=== PATIENT | male | born 1980 | race Two or more races ===

== ENCOUNTER 2017-11-02 23:25 | Emergency (ER) | payer OTHER ==
--- NOTE | 2017-11-03 01:00 | ED Physician Documentation ---
History of Present Illness - Stated complaint Stated Complaint: ALLERGIC REACTION/HEP B VAC - Chief complaint Chief Complaint: Wound - History obtained from History obtained from: Patient - History of Present Illness Timing: Yesterday Pain level now: 0 Improved by: no ameliorating factors Worsened by: no exacerbating factors - Additonal information Additional information: received second dose of hep b vaccination and subsequently developed generalized pruritic rash. no h/o similar reaction. denies dyspnea, oropharyngeal swelling/constriction, lightheadedness Review of Systems Constitutional: reports: Reviewed and negative Respiratory: reports: Reviewed and negative Skin: reports: Rash PD PAST MEDICAL HISTORY - Past Medical History Past Medical History: No - Past Surgical History Past Surgical History: Yes - Present Medications Home Medications: Ambulatory Orders Medication Instructions Recorded Confirmed predniSONE [Prednisone] 40 mg PO DAILY 3 Days #6 tablet 11/03/17 - Allergies Allergies/Adverse Reactions: Allergies Allergy/AdvReac Type Severity Reaction Status Date / Time No Known Drug Allergies Allergy Verified 11/02/17 23:37 - Social History Does the pt smoke?: No Smoking Status: Never smoker Does the pt drink ETOH?: No Does the pt have substance abuse?: No - Immunizations Immunizations are current?: Yes - POLST Patient has POLST: No PD ED PE NORMAL - Vitals Vital signs reviewed: Yes - General General: Alert and oriented X 3, No acute distress, Well developed/nourished - HEENT HEENT: Pharynx benign - Respiratory Respiratory: No respiratory distress, Clear bilaterally PD ED PE EXPANDED - Derm Derm: Urticaria (generalized, scattered without confluence) Results - Vitals Vitals: Oxygen O2 Source Room air PD MEDICAL DECISION MAKING - ED course Complexity details: considered differential, d/w patient Departure - Departure Disposition: 01 Home, Self Care Clinical Impression: Allergic reaction Condition: Good Instructions: ED Drug React Allergic Follow-Up: ARACELI Estrella [Provider Group] Prescriptions: predniSONE [Prednisone] 40 mg PO DAILY 3 Days #6 tablet Discharge Date/Time: 11/03/17 01:29
[2017-11-03] MEDS ORDERED: predniSONE 20 MG TABLET PO STA (01:17)
[2017-11-03 01:29] VITALS: BP 119/71
== END 2017-11-03 01:29 | disposition home or self-care (01) ==
LOC: ED 23:25
DX: T88.1XXA Other complications following immunization, not elsewhere classified, initial encounter (principal); L27.1 Localized skin eruption due to drugs and medicaments taken internally; T50.Z95A Adverse effect of other vaccines and biological substances, initial encounter
CPT/HCPCS: 99283; J7512

== ENCOUNTER 2019-05-04 09:16 | Outpatient (CLI) | payer OTHER ==
--- NOTE | 2019-05-04 09:52 | SLEEP CARE CONSULTATION ---
Information from patient questionnaire entered by Lien Silva. I have reviewed and concur with the information entered by Lien Silva. This document represents the service I personally performed and the decisions made by me, Jose Angel Mcmahon MD, [facility]. History of Present Illness Reason for Visit: New patient Chief Complaint: reports: Unrefreshed sleep, Excessive daytime sleepiness, Observed pauses in breathing, Fatigue Usual bedtime: 8:00-11:00PM Time it takes to fall asleep: 5-15 MINUTES Snores at night: Yes Observed to quit breathing while asleep: Yes Sleeps alone due to snoring: No Number of times waking at night: 3-5 Reasons for waking at night: reports: Choking, Gasping for air, Bathroom Toss, Turn, or Twitch while sleeping: Yes Recalls having dreams: Yes Usually gets out of bed at: 6:00-7:00AM Feels refreshed in the morning: No Morning headache: No Sleepy or fatigued during the day: Yes Ever fallen asleep while driving: No Takes day naps: Yes Dreams during day naps: Yes Prior sleep studies: No Additional HPI information: I had the pleasure of seeing Mr. Hawkins today regarding the possibility of him having a sleep disorder. As you know, he is a 29 year old gentleman who complains of fatigue and excessive daytime sleepiness. He works rotating shift and sometimes have to wake up as early as 2 am to commute from [place] to the [facility]. He also snores and his girlfriend has seen his stop breathing at night. Subjective Initial Mora Sleepiness Scale score: 15 Social History The patient's occupation is a [employer]. Patient is and lives in [facility]. Have you smoked in the past 12 months: No Alcohol use: No Caffeine use: Yes Caffeine amount and frequency: 1/2-1 POT OF COFFEE/DAY Family History Family history of sleep disordered breathing: Yes Family Hx Sleep Apnea: Sibling: Snoring, Grandparent: Snoring Allergies and Home Medications Home medication list reviewed: Yes Review of Systems Weight gain over past 5 years: 40 Weight loss over past 5 years: 40 Ear/Nose/Throat: reports: wisdom teeth removed Musculoskeletal: reports: back pain Immunologic: reports: allergies to food or environment Physical Exam Vital signs obtained and entered by: Dr. Nikomborirak Blood Pressure: 100/60 Cuff size: regular Heart Rate: 85 O2 Saturation: 98 Height: 5 ft 5 in Weight (kg): 81.647 kg Body Mass Index: 29.9 BMI Classification: Overweight Neck circumference: 15 HEENT: No craniofacial malformation Nostrils: patent to airflow Turbinates: normal Septum: midline Mouth and throat: normal Soft palate: normal Hard palate: normal Uvula: normal Uvula visualization: 100% Mallampati Class I Tongue: normal in size Tonsils: small Chin and jaw: normal size and position Neck: normal w/o lymphadenopathy or thyromegaly Heart: regular rate and rhythm Lungs: clear bilaterally Abdomen: soft, non-tender Extremities: no edema or clubbing Neurologic: intact, no focal deficits Impression and Plan 1. Obstructive Sleep Apnea-Hypopnea Syndrome, as suggested by history of loud and irregular snoring, observed cessation of breath while asleep, frequent awakenings during the night, unrefreshed sleep, cognitive impairment, and daytime hypersomnolence. Obesity is a common predisposing factor for obstructive sleep apnea-hypopnea syndrome. Pathophysiology of sleep-disordered breathing was discussed. I recommend proceeding to polysomnography to confirm the diagnosis and to assess severity. I informed the patient of what the sleep st udies involve and after some discussion, he agreed to proceed. Plan: 1. Schedule polysomnography and return in 1 to 2 weeks after the study to discuss result and initiate therapy. 2. Avoid long distance driving or when feeling sleepy. 3. Avoid alcohol, sedative and muscle relaxant around bedtime. 4. Attempt to lose some weight. I spent 100% of this 15 minute visit face to face with the patient with greater than 50% of this was spent time counseling the patient and coordination of care.
[2019-05-04 09:53] VITALS: BP 100/60
== END 2019-05-04 09:17 | disposition home or self-care (01) ==
LOC: SC 09:16
PROVIDERS: ATTEND Internal Medicine Pulmonary Disease
DX: R06.83 Snoring (principal); G47.8 Other sleep disorders; R06.81 Apnea, not elsewhere classified; R41.89 Other symptoms and signs involving cognitive functions and awareness; G47.10 Hypersomnia, unspecified
CPT/HCPCS: 99203; 99212

== ENCOUNTER 2019-05-20 19:21 | Outpatient (CLI) | payer OTHER | END 2019-05-20 19:22 | disposition home or self-care (01) | LOC: SC 19:21 | PROVIDERS: ATTEND Internal Medicine Pulmonary Disease | DX: R06.83 Snoring (principal) | CPT/HCPCS: 95810 ==

== ENCOUNTER 2019-06-02 11:02 | Outpatient (CLI) | payer OTHER ==
--- NOTE | 2019-06-02 14:22 | SLEEP CARE CONSULTATION ---
Information from patient questionnaire entered by Arin Adkins. I have reviewed and concur with the information entered by Arin Adkins. This document represents the service I personally performed and the decisions made by me, Jose Angel Mcmahon MD, [facility]. History of Present Illness Initial Baltic Sleepiness Scale score: 15 Current Baltic Sleepiness Scale score: 15 Additional HPI information: HPI: Mr. Hawkins returned for follow up of the sleep study he had on 05/20/2019. The polysomnography showed that the patient had normal sleep efficiency. The sleep architecture was relatively normal as well considering the first night effect. Respiratory monitoring showed no significant sleep disordered breathing obstructive sleep apnea-hypopnea (AHI = 2.9) or hypoxia (mg oxygen saturation of 87% and only 0.1% to the total sleep time was spent with oxygen saturation below 90%). The few respiratory events occurred independently of sleep stage and body position. (supine AHI = 3.0; non-supine = 2.56). Snore was moderate to loud in intensity. There was no significant periodic leg movement of sleep. Cardiac rhythm was normal sinus rhythm without significant arrhythmia. No abnormal behavior (parasomnia) observed during the night. The patient was informed of these findings. I explained to him that the sleep study was normal. His main complaint is excessive daytime sleepiness and fatigue. He continues to work rotating shift. Allergies and Home Medications Drug allergies reviewed: Yes Home medication list reviewed: Yes Review of Systems Review of systems same as previous: Yes Impression and Plan IMPRESSION: 1. Shift work sleep disorder, causing excessive daytime sleepiness. No sleep disrupting conditions found during the sleep study. No treatment or further workup is indicated at this time. In the future, if he still is sleepy despite working the normal day shift, he should be reevaluated. A multiple sleep latency test (MSLT) can be performed then. PLAN: 1. Follow up wilt his primary care provider 2. Return to the sleep clinic on as needed basis. I spent 100% of this 15 minute visit face to face with the patient with greater than 50% of this was spent time counseling the patient and coordination of care.
== END 2019-06-02 11:03 | disposition home or self-care (01) ==
LOC: SC 11:02
PROVIDERS: ATTEND Internal Medicine Pulmonary Disease
DX: G47.26 Circadian rhythm sleep disorder, shift work type (principal)
CPT/HCPCS: 99212; 99213